=== PATIENT | male | born 1960 | race Caucasian/White ===

== ENCOUNTER 2016-06-15 18:18 | Emergency (ER) | payer MEDICAID ==
--- NOTE | 2016-06-15 18:18 | NUR ---
Upon arrival, pt states that if he didn't get the care he wanted, he would tear the hospital apart. [facility] notified. Dr. Jauregui to the waiting room to screen patient. Pt now states he is coughing 1500 times an hour and is having difficulty breathing. No coughing at this time.
--- NOTE | 2016-06-15 18:20 | NUR ---
Pt refusing triage at this time.
--- NOTE | 2016-06-15 18:30 | NUR ---
here to take patient to [facility] per pt request. Pt ambulated to waiting law enforcement vehicle with a steady gate.
== END 2016-06-15 18:30 | disposition home or self-care (01) ==
LOC: SED 18:18
DX: R05 Cough (principal); R06.02 Shortness of breath; Z91.89 Other specified personal risk factors, not elsewhere classified
CPT/HCPCS: 99285

== ENCOUNTER 2022-02-15 19:36 | Emergency (ER) | payer MEDICAID ==
[~2022-02-15] VITALS: Ht 172.7 cm; Wt 81.6 kg
[2022-02-15 19:36] VITALS: BP_SYST 115
[2022-02-15] MEDS ORDERED: LORazepam 1 MG TABLET PO ONE (20:00)
[2022-02-15] MEDS ORDERED: OLANZapine 5 MG TABLET PO ONE (20:00)
[2022-02-15] MEDS ORDERED: HALOPERIDOL LACTATE 5 MG/ML VIAL IM ONE (21:00)
[2022-02-15] MEDS ORDERED: OLAN5TAB3 PO (21:12)
[2022-02-15 21:38] VITALS: BP_SYST 127
== END 2022-02-15 21:38 | disposition home or self-care (01) ==
LOC: SED 19:36
DX: F20.9 Schizophrenia, unspecified (principal); R06.02 Shortness of breath; Z79.899 Other long term (current) drug therapy
CPT/HCPCS: 99283; 96372; J1630

== ENCOUNTER 2022-11-12 18:14 | Emergency (ER) | payer MEDICAID ==
[~2022-11-12] VITALS: Ht 177.8 cm; Wt 86.2 kg
[~2022-11-12 18:14] MED LIST: OLAN5TAB3 PO
[2022-11-12 18:17] VITALS: BP_SYST 117; PULSE 64; RESP 18; TEMP 99; O2SAT 100
[2022-11-12 19:25] LABS: BASOPHILS # (AUTO) 0.1 K/uL (0.0-0.2); BASOPHILS % (AUTO) 0.9 % (0.0-2.0); EOSINOPHILS # (AUTO) 0.2 K/uL (0.0-0.4); EOSINOPHILS % (AUTO) 3.1 % (0.0-4.0); HEMATOCRIT 38.6 % (36-54); HEMOGLOBIN 13.4 g/dL (14.0-18.0); LYMPHOCYTES # (AUTO) 1.5 K/uL (1.0-5.5); LYMPHOCYTES % (AUTO) 23.6 % (20.5-51.5); MEAN CORPUSCULAR HEMOGLOBIN 30 pg (27-31); MEAN CORPUSCULAR HGB CONC 35 % (32-36); MEAN CORPUSCULAR VOLUME 86 fL (79.0-98.0); MONOCYTES # (AUTO) 0.7 K/uL (0.0-1.0); MONOCYTES % (AUTO) 11.1 % (1.7-9.3); NEUTROPHILS # (AUTO) 3.8 K/uL (1.8-7.7); NEUTROPHILS % (AUTO) 61.3 % (40.0-70.0); PLATELET COUNT (AUTO) 261 K/uL (130-430); RED BLOOD CELL COUNT(AUTO) 4.48 MIL/uL (4.2-6.2); RED CELL DISTRIBUTION WIDTH 13.4 % (9.0-15.0); WHITE BLOOD COUNT (AUTO) 6.2 K/uL (4.8-10.8)
[2022-11-12 19:45] LABS: ANION GAP 12 (5-15); CALCIUM 7.9 mg/dL (8.4-11.0); CHLORIDE 105 mmol/L (98-107); CREATININE 0.97 mg/dL (0.55-1.30); GFR AFRICAN AMERICAN 101 mL/min (>90); GLUCOSE 123 mg/dL (74-106); UREA NITROGEN, BLOOD 9 mg/dL (8-21)
[2022-11-12 19:52] LABS: ALANINE AMINOTRANSFERASE 20 U/L (12-78); ALBUMIN 3.2 g/dL (3.4-4.8); ASPARTATE AMINOTRANSFERASE 18 U/L (10-37); TOTAL BILIRUBIN 0.6 mg/dL (0.0-1.0)
[2022-11-12 21:23] VITALS: BP_SYST 116; PULSE 68; RESP 19; TEMP 99; O2SAT 100
== END 2022-11-12 21:23 | disposition home or self-care (01) ==
LOC: SED 18:14
DX: E86.0 Dehydration (principal); R53.1 Weakness; Z79.899 Other long term (current) drug therapy
CPT/HCPCS: 36415; 71045; 80053; 83880; 84484; 85025; 85379; 93005; 99285

== ENCOUNTER → 2023-06-30 | Emergency (ER) | payer MEDICAID | END | disposition left against medical advice (07) | LOC: SED 11:26 | DX: R51.9 Headache, unspecified (principal); Z53.21 Procedure and treatment not carried out due to patient leaving prior to being seen by health care provider ==